=== PATIENT | male | born 1980 | race Asian ===

== ENCOUNTER 2018-10-25 01:09 | Emergency (ER) | payer BC ==
[~2018-10-25] VITALS: Ht 170.2 cm; Wt 84.4 kg
[2018-10-25 01:26] VITALS: Ht 170.2 cm; Wt 84.4 kg
[2018-10-25 02:32] LABS: BASOPHIL % 0.7 % (0-2); PLATELET COUNT 311 x10^3mcL (130-400)
[2018-10-25 02:38] LABS: RED CELL DISTRIBUTION WIDTH 11.1 % (11.5-14.5)
[2018-10-25 02:39] LABS: CALCIUM 9.2 mg/dL (8.5-10.1); CARBON DIOXIDE 26.7 mmol/L (21-32); CHLORIDE SERUM 105 mmol/L (98-107); GFR1 > 60 mL/min; GLUCOSE SERUM 103 mg/dL (74-106); POTASSIUM SERUM 3.4 mmol/L (3.5-5.1); SODIUM SERUM 142 mmol/L (136-145)
[2018-10-25 02:43] LABS: ALBUMIN 4.2 g/dL (3.4-5.0); ALKALINE PHOSPHATASE 86 U/L (46-116); ALT/SGPT 21 U/L (16-63); AST/SGOT 14 U/L (15-37); BILIRUBIN TOTAL 0.5 mg/dL (0.20-1.00)
[2018-10-25 02:46] LABS: TOTAL PROTEIN, SERUM 8.3 g/dL (6.4-8.2)
[2018-10-25 02:51] LABS: T3 TOTAL 1.1 ng/mL
[2018-10-25 02:57] LABS: FREE T4 1.21 ng/dL (0.76-1.46); T4(THYROXINE) 7.6 ug/dL (4.7-13.3)
[2018-10-25 03:25] VITALS: BP 124/89
== END 2018-10-25 03:25 | disposition home or self-care (01) ==
LOC: ED 01:09
PROVIDERS: Emergency Medicine
DX: R06.00 Dyspnea, unspecified (principal); F41.9 Anxiety disorder, unspecified; R07.89 Other chest pain; R00.2 Palpitations
CPT/HCPCS: 36415; 84439; 85378; Q0092